=== PATIENT | female | born 1985 | race Caucasian/White ===

== ENCOUNTER 2017-12-10 20:57 | Emergency (ER) | payer OTHER ==
[~2017-12-10] VITALS: Ht 167.6 cm; Wt 90.7 kg
[2017-12-10] MEDS ORDERED: WELLBUTRIN XL300 MG PO (21:12)
[2017-12-10] MEDS ORDERED: XANAX1 MG PO (21:12)
[2017-12-10] MEDS ORDERED: OMEPRAZOLE20 M1 PO (21:12)
[2017-12-10] MEDS ORDERED: TRAZODONE HCL50 MG PO (21:13)
[2017-12-10] MEDS ORDERED: BUSPAR30 MG PO (21:13)
[2017-12-10 23:23] VITALS: BP 125/71
== END 2017-12-10 23:28 | disposition home or self-care (01) ==
LOC: M.ERS 20:57
DX: M25.474 Effusion, right foot (principal); F41.0 Panic disorder [episodic paroxysmal anxiety]; Z88.1 Allergy status to other antibiotic agents

== ENCOUNTER 2018-02-04 20:02 | Emergency (ER) | payer OTHER ==
[~2018-02-04] VITALS: Ht 167.6 cm; Wt 90.7 kg
[~2018-02-04 20:02] MED LIST: BUSPAR30 MG PO; OMEPRAZOLE20 M1 PO; TRAZODONE HCL50 MG PO; WELLBUTRIN XL300 MG PO; XANAX1 MG PO
[2018-02-04] MEDS ORDERED: YASMIN 28 TABL1 EACH PO (20:24)
[2018-02-04] MEDS ORDERED: BIAXIN 500 MG500 M2 PO (20:25)
[2018-02-04 20:59] LABS: ABSOLUTE EOSINOPHILS 0.1 thou/uL (0.0-0.7); ABSOLUTE LYMPHOCYTES 1.9 thou/uL (0.8-5.3); ABSOLUTE MONOCYTES 0.6 thou/uL (0.0-1.2); ABSOLUTE NEUTROPHILS 8.3 thou/uL (1.6-8.1); BASOPHILS 0.2 %; EOSINOPHILS 1.2 %; HEMATOCRIT 35.9 % (37.0-47.0); LYMPHOCYTES 16.9 %; MCH 28.7 pg (26.0-34.0); MCHC 33.5 g/dL (28.0-37.0); MCV 85.7 fL (80.0-100.0); MONOCYTES 5.9 %; MPV 7.8 fl. (7.2-11.1); NUCLEATED RBCS 0 /100WBC; PLATELET COUNT* 286 thou/uL (150-400); POLYS 75.8 %; RBC 4.19 mil/uL (4.20-5.00); RDW-CV 12.8 % (10.5-14.5)
[2018-02-04 21:05] LABS: CALCIUM 8.4 mg/dL (8.5-10.1); CREATININE 0.8 mg/dL (0.6-1.3); POTASSIUM 3.5 mmol/L (3.5-5.1)
[2018-02-04 21:10] LABS: ALBUMIN 3.2 g/dL (3.4-5.0); TOTAL BILIRUBIN 0.4 mg/dL (<0.1-1.0); TOTAL PROTEIN 7.2 g/dL (6.4-8.2)
[2018-02-04 21:15] LABS: INFLUENZA A ANTIGEN None Detected (None Detect); INFLUENZA B ANTIGEN None Detected (None Detect)
[2018-02-04] MEDS ORDERED: ZOFRAN ODT4 MG PO (21:47)
[2018-02-04] MEDS ORDERED: HYDROCODON-ACE1 EAC8 PO (21:47)
[2018-02-04] MEDS ORDERED: PROAIR HFA8.5 GM INH (21:47)
[2018-02-04 22:10] VITALS: BP 121/80
== END 2018-02-04 22:11 | disposition home or self-care (01) ==
LOC: M.ERS 20:02
PROVIDERS: Emergency Medicine
DX: J18.9 Pneumonia, unspecified organism (principal); E11.9 Type 2 diabetes mellitus without complications; F41.9 Anxiety disorder, unspecified; Z88.8 Allergy status to other drugs, medicaments and biological substances

== ENCOUNTER 2018-03-06 15:04 | Emergency (ER) | payer OTHER ==
[~2018-03-06] VITALS: Ht 167.6 cm; Wt 90.7 kg
[~2018-03-06 15:04] MED LIST changes: +BIAXIN 500 MG500 M2 PO; +HYDROCODON-ACE1 EAC8 PO; +PROAIR HFA8.5 GM INH; +YASMIN 28 TABL1 EACH PO; +ZOFRAN ODT4 MG PO
[2018-03-06] MEDS ORDERED: MULTI VITAMIN1 EACH PO (15:25)
[2018-03-06] MEDS ORDERED: CALCIUM + D SO1 EACH PO (15:25)
[2018-03-06] MEDS ORDERED: PEPCID20 MG PO (15:26)
[2018-03-06] MEDS ORDERED: ZANTAC 150MG T150 MG PO (15:26)
[2018-03-06 15:39] LABS: URINE BILIRUBIN NEGATIVE (Negative); URINE BLOOD NEGATIVE (Negative); URINE CLARITY CLEAR; URINE COLOR STRAW; URINE GLUCOSE-RANDOM NEGATIVE (Negative); URINE KETONES NEGATIVE (Negative); URINE LEUKOCYTES-REFLEX NEGATIVE (Negative); URINE NITRITE-REFLEX NEGATIVE (Negative); URINE PROTEIN NEGATIVE (Negative); URINE SPECIFIC GRAVITY <= 1.005 (1.005-1.030); URINE UROBILINOGEN 0.2 E.U./dl (0.2-1.0)
[2018-03-06 15:49] LABS: ABSOLUTE EOSINOPHILS 0.2 thou/uL (0.0-0.7); ABSOLUTE LYMPHOCYTES 2.3 thou/uL (0.8-5.3); ABSOLUTE MONOCYTES 0.4 thou/uL (0.0-1.2); ABSOLUTE NEUTROPHILS 3.2 thou/uL (1.6-8.1); BASOPHILS 0.4 %; EOSINOPHILS 3.7 %; HEMATOCRIT 38.1 % (37.0-47.0); MCHC 34.1 g/dL (28.0-37.0); MCV 85.2 fL (80.0-100.0); MONOCYTES 7.2 %; MPV 7.7 fl. (7.2-11.1); NUCLEATED RBCS 0 /100WBC; PLATELET COUNT* 319 thou/uL (150-400); POLYS 51.7 %; RBC 4.47 mil/uL (4.20-5.00); RDW-CV 12.8 % (10.5-14.5); WBC 6.1 thou/uL (4.0-11.0)
[2018-03-06 15:57] LABS: CALCIUM 8.6 mg/dL (8.5-10.1); CREATININE 0.7 mg/dL (0.6-1.3); POTASSIUM 3.7 mmol/L (3.5-5.1)
[2018-03-06 16:02] LABS: ALBUMIN 3.3 g/dL (3.4-5.0); TOTAL BILIRUBIN 0.2 mg/dL (<0.1-1.0); TOTAL PROTEIN 7.4 g/dL (6.4-8.2)
[2018-03-06] MEDS ORDERED: NORCO 5-325 TA1 EACH PO (17:23)
[2018-03-06] MEDS ORDERED: ZOFRAN4 MG PO (17:23)
[2018-03-06 17:38] VITALS: BP 108/77
--- NOTE | 2018-03-07 11:52 | EKG ---
[place] [address] ELECTROCARDIOGRAM REPORT Name: DIANE POLK Room: [facility]#: [id number] Admission: 03/06/18 Attend Phys: Discharge: 03/06/18 Date of : 85 Report #: [id number] THIS REPORT FOR: //name// [facility] ED Test Date: 2018-03-06 Test Time: 15:33:52 Pat Name: DIANE POLK Department: Room: Gender: F [employer]: JULIETH : 1985 Requested By: Yenny Gill Order Number: [id number] MD: Aristeo Tay Measurements Intervals [place] Rate: 86 P: 38 AR: 112 QRS: 19 QRSD: 98 T: 20 QT: 381 QTc: 456 Interpretive Statements Sinus rhythm Borderline short AR interval Low voltage, precordial leads No previous ECG available for comparison Electronically Signed On 03-07-2018 11:52:37 CDT by Aristeo Tay [email or web address] <ELECTRONICALLY SIGNED> By: Aristeo Tay MD, [facility] 03/07/18 1152 [id number] 32 Aristeo Tay MD, FAC /EPI
== END 2018-03-06 17:39 | disposition home or self-care (01) ==
LOC: M.ERS 15:04
PROVIDERS: Nurse Practitioner Family
DX: K80.20 Calculus of gallbladder without cholecystitis without obstruction (principal); E11.9 Type 2 diabetes mellitus without complications; F41.0 Panic disorder [episodic paroxysmal anxiety]; Z88.8 Allergy status to other drugs, medicaments and biological substances

== ENCOUNTER → 2018-12-03 | Outpatient (CLI) | payer OTHER ==
[~2018-12-03] MED LIST changes: +CALCIUM + D SO1 EACH PO; +MULTI VITAMIN1 EACH PO; +NORCO 5-325 TA1 EACH PO; +PEPCID20 MG PO; +ZANTAC 150MG T150 MG PO; +ZOFRAN4 MG PO
== END | disposition home or self-care (01) ==
LOC: M.RAD 11-30 12:11
DX: M25.552 Pain in left hip (principal); F41.9 Anxiety disorder, unspecified; Z79.899 Other long term (current) drug therapy; Z88.8 Allergy status to other drugs, medicaments and biological substances